=== PATIENT | female | born 1980 | race Caucasian/White ===

== ENCOUNTER 2017-07-15 11:50 | Emergency (ER) | payer OTHER ==
[~2017-07-15] VITALS: Ht 149.9 cm; Wt 50.0 kg
[2017-07-15] MEDS ORDERED: [UNRECOGNIZED DRUG - OTHER] PO (12:08)
[2017-07-15] MEDS ORDERED: NAPROSYN500 MG PO (13:50)
[2017-07-15] MEDS ORDERED: FLEXERIL PO (13:50)
[2017-07-15 13:54] VITALS: BP 130/75
== END 2017-07-15 14:00 | disposition home or self-care (01) | DRG 552 ==
LOC: ED 11:50
DX: S16.1XXA Strain of muscle, fascia and tendon at neck level, initial encounter (principal); M54.2 Cervicalgia; V43.62XA Car passenger injured in collision with other type car in traffic accident, initial encounter; Y92.488 Other paved roadways as the place of occurrence of the external cause

== ENCOUNTER 2019-10-05 | Emergency (ER) | payer OTHER ==
[~2019-10-05] MED LIST: FLEXERIL PO; NAPROSYN500 MG PO; [UNRECOGNIZED DRUG - OTHER] PO
[2019-10-05] MEDS ORDERED: [UNRECOGNIZED DRUG - REMARK] PO (05:34)
[2019-10-05] MEDS ORDERED: SINGULAIR10 MG PO (05:35)
[2019-10-05] MEDS ORDERED: BIRTH CONTROL PILL PO (05:35)
[2019-10-05] MEDS ORDERED: PROZAC20 MG PO (05:35)
[2019-10-05 05:46] LABS: HEMATOCRIT 36.3 % (37.0-47.0); IMMATURE GRANULOCYTES 0.6 % (0.0-5.0); MEAN CELL VOLUME 88.8 fL CALC (80.0-100.0); MEAN CORPUSCULAR HGB 29.6 pG CALC (26.0-32.0); MEAN CORPUSCULAR HGB CONC 33.3 g/L CALC (32.0-36.0); NEUT# 9.55 thou/uL (2.00-7.15); RED BLOOD COUNT 4.09 mill/uL (4.20-5.60); RED CELL DISTRI WIDTH 13.2 % (11.5-15.5)
[2019-10-05 05:51] LABS: HEMOGLOBIN 12.1 g/dl (12.0-16.0)
[2019-10-05 06:51] LABS: ALKALINE PHOSPHATASE 87 u/l (38-126); AMYLASE 87 u/l (30-110); ANION GAP 13 (6-22 (CALC)); BUN 14 mg/dL (7-17); BUN/CREATININE RATIO 24 (12-20 (CALC)); CARBON DIOXIDE 23 mmol/l (22-30); CHLORIDE 106 mmol/l (95-108); CREATININE 0.6 mg/dL (0.5-1.0); GFR > 60 ML/MIN (>=60 (CALC)); GFR FOR AFR.AMER. > 60 ML/MIN (>=60 (CALC)); LIPASE 317 u/l (23-300); POTASSIUM 4.1 mmol/l (3.5-5.1); SGOT/AST 27 u/l (14-36); SODIUM 138 mmol/l (137-146)
[2019-10-05 06:53] LABS: BILIRUBIN, TOTAL 0.3 mg/dL (0.0-1.4)
[2019-10-05 06:59] LABS: MYOGLOBIN 14 ng/mL (0 - 62)
[2019-10-05] MEDS ORDERED: TORADOL PO (15:51)
== END 2019-10-05 07:17 | disposition home or self-care (01) | DRG 313 ==
PROVIDERS: Family Medicine
DX: R07.9 Chest pain, unspecified (principal)

== ENCOUNTER 2020-11-18 17:24 | Emergency (ER) | payer OTHER ==
[~2020-11-18 17:24] MED LIST changes: +CRYSELLE PO; +PROZAC20 MG PO; +SINGULAIR10 MG PO; +TORADOL PO; +[UNRECOGNIZED DRUG - REMARK] PO
[2020-11-18] MEDS ORDERED: LIALDA1.2 GM PO (18:09)
[2020-11-18] MEDS ORDERED: ZYRTEC10 MG PO (18:10)
[2020-11-18] MEDS ORDERED: ULTRAM50 M1 PO (19:29)
[2020-11-18 19:58] VITALS: BP 137/87
== END 2020-11-18 19:59 | disposition home or self-care (01) | DRG 563 ==
LOC: ED 17:24
DX: S42.252A Displaced fracture of greater tuberosity of left humerus, initial encounter for closed fracture (principal); S53.402A Unspecified sprain of left elbow, initial encounter; Y35.891A Legal intervention involving other specified means, law enforcement official injured, initial encounter; Y93.89 Activity, other specified; Y99.0 Civilian activity done for income or pay
CPT/HCPCS: J2060